=== PATIENT | male | born 1990 | race Caucasian/White ===

== ENCOUNTER → 2017-05-15 | Outpatient (CLI) | payer BC ==
--- NOTE | 2017-05-15 08:14 | US ---
EXAMINATION TYPE: US abdomen limited DATE OF EXAM: 05/15/2017 COMPARISON: NONE CLINICAL HISTORY: R10.30 LOWER ABD PAIN,N50.819 TESTICULAR PAIN. Patient stated has left inguinal and scrotal pain with upward motion of left leg and symptoms noted x 6 months; denies trauma Assess for hernia at location of: left groin Left inguinal hernia is not identified with and without Valsalva Maneuver. Real-time scanning was performed by the retail coordinator utilizing Valsalva and additional dynamic maneuve rs to assess for hernia. IMPRESSION: No focal sonographic abnormality within the left inguinal region or evidence of hernia w ith utilization of the Valsalva maneuver.
--- NOTE | 2017-05-15 08:16 | US ---
EXAMINATION TYPE: US scrotum with doppler. Grayscale and color Doppler Duplex imaging performed of cailin orellana scrotum. DATE OF EXAM: 05/15/2017 COMPARISON: NONE CLINICAL HISTORY: R10.30 LOWER ABD PAIN,N50.819 TESTICULAR PAIN. Patient stated has left inguinal and pelvic pain with upward motion of left leg with symptoms x 6 months; no trauma noted EXAM MEASUREMENTS: TESTICLES: Right Testicle: 4.6 x 2.1 x 3.4 cm Left Testicle: 4.2 x 2.0 x 2.8 cm EPIDIDYMIS HEAD: Right Epididymis: 0.8 x 0.7 x 0.9 cm Left Epididymis: 1.0 x 1.6 x 0.6 cm Doppler performed to assess for testicular vascularity; good bilateral color flow and waveforms are s een. There is no evidence of testicular torsion. Presence of hydroceles: small simple fluid collection is noted superior left scrotal sac = 1.9 x 1.4 x 0.3cm Presence of varicoceles: multiple tortuous veins are noted bilaterally at epididymal area with abnor mal dilatation noted left veins as size at >2.5mm on image #[id number] without Valsalva Maneuver. No inguinal hernia is noted left groin at area of concern. See abdomen limited study today for hernia assessment. IMPRESSION: 1. No evidence of testicular torsion on the current examination or intratesticular mass. No varicocel e is seen. 2. Trace right hydrocele seen at the superior aspect of the scrotal sac.
== END | disposition home or self-care (01) ==
LOC: RADUSWWP 06:50
PROVIDERS: ATTEND Family Medicine
DX: N50.819 Testicular pain, unspecified (principal); R10.30 Lower abdominal pain, unspecified
CPT/HCPCS: 76705; 76870; 93975

== ENCOUNTER 2017-06-11 23:25 | Emergency (ER) | payer BC ==
[2017-06-11 23:32] VITALS: BP 117/67; PULSE 83; RESP 18; TEMP 98.6
--- NOTE | 2017-06-12 00:27 | ED ---
Upper Extremity HPI - General Chief Complaint: Extremity Injury, Upper Stated Complaint: wrist pain Time Seen by Provider: 06/11/17 23:56 Source: patient, RN notes reviewed, old records reviewed Mode of arrival: ambulatory Limitations: no limitations - History of Present Illness Initial Comments: This patient is a 27 year old male with CC of left wrist pain and swelling for 2 days. It started while at work. He works in a factory with multiple repeatitive movements. He relates pain with flexion and extension of wrist. - Related Data Previous Rx's Medication Instructions Recorded Ibuprofen [Motrin] 600 mg PO Q8HR PRN #30 tab 06/12/17 Allergies Allergy/AdvReac Type Severity Reaction Status Date / Time codeine AdvReac Unknown Verified 06/11/17 23:32 Childhood Review of Systems ROS Statement: Those systems with pertinent positive or pertinent negative responses have been documented in the HPI. ROS Other: All systems not noted in ROS Statement are negative. Constitutional: Denies: fever, chills Eyes: Denies: eye pain ENT: Denies: ear pain Respiratory: Denies: cough Cardiovascular: Denies: chest pain Endocrine: Denies: fatigue Gastrointestinal: Denies: abdominal pain, nausea, vomiting Genitourinary: Denies: dysuria Musculoskeletal: Denies: back pain Skin: Denies: rash Neurological: Denies: headache, weakness Psychiatric: Denies: depression Hematological/Lymphatic: Denies: easy bleeding Past Medical History Past Medical History: No Reported History History of Any Multi-Drug Resistant Organisms: None Reported Past Surgical History: No Surgical Hx Reported Additional Past Surgical History / Comment(s): nose fx. Past Psychological History: No Psychological Hx Reported Smoking Status: Current every day smoker Past Alcohol Use History: Occasional Past Drug Use History: Marijuana General Exam Limitations: no limitations General appearance: alert, in no apparent distress Head exam: Present: atraumatic, normocephalic, normal inspection Eye exam: Present: normal appearance, PERRL, EOMI. Absent: scleral icterus, conjunctival injection, periorbital swelling ENT exam: Present: normal exam, mucous membranes moist Neck exam: Present: normal inspection. Absent: tenderness, meningismus, lymphadenopathy Respiratory exam: Present: normal lung sounds bilaterally. Absent: respiratory distress, wheezes, rales, rhonchi, stridor Cardiovascular Exam: Present: regular rate, normal rhythm, normal heart sounds. Absent: systolic murmur, diastolic murmur, rubs, gallop, clicks GI/Abdominal exam: Present: soft, normal bowel sounds. Absent: distended, tenderness, guarding, rebound, rigid Extremities exam: Present: normal inspection, full ROM, normal capillary refill , other (Swelling noted over left wrist, full ROM. No other symptoms. ). Absent : tenderness, pedal edema, joint swelling, calf tenderness Neurological exam: Present: alert, oriented X3, CN II-XII intact Psychiatric exam: Present: normal affect, normal mood Skin exam: Present: warm, dry, intact, normal color. Absent: rash Course Vital Signs 06/11/17 23:29 Temperature 98.6 F Pulse Rate 83 Respiratory 18 Rate Blood Pressure 117/67 O2 Sat by Pulse 98 Oximetry Medical Decision Making - Medical Decision Making 27 year old with left wrist pain and swelling after work. Works with repeatative movements, skin appears well. Patient has no excoriations. Patient Xray are normal. Discussed tendinitis. Discusssed LYNSEY wrap and antiinflammatory medication. Given note for work. - Radiology Data Radiology results: report reviewed Xray of left wrist and forearm are within normal limits. Disposition Clinical Impression: Tendinitis of left forearm Disposition: HOME SELF-CARE Condition: Good Instructions: Wrist Injury (ED), Swollen Joint (ED) Additional Instructions: Patient advised to follow-up with primary care provider. Return to the emergency department if any alarming signs or symptoms occur. Take antibiotic ointment her medicine over the compression wrap. Prescriptions: Ibuprofen [Motrin] 600 mg PO Q8HR PRN #30 tab PRN Reason: Pain Referrals: Bo Lucas III, MD [Primary Care Provider] - 1-2 days Jesse Odonnell MD [STAFF PHYSICIAN] - 1-2 days Time of Disposition: 01:01
--- NOTE | 2017-06-12 00:36 | XR ---
EXAMINATION TYPE: XR forearm LT DATE OF EXAM: 06/12/2017 COMPARISON: NONE HISTORY: Pain TECHNIQUE: 2 views FINDINGS: Radius and ulna appear intact. I see no fracture nor dislocation. Soft tissues appear bharat l. IMPRESSION: Negative left forearm exam
--- NOTE | 2017-06-12 00:37 | XR ---
EXAMINATION TYPE: XR wrist limited LT DATE OF EXAM: 06/12/2017 COMPARISON: NONE HISTORY: Pain TECHNIQUE: 2 views FINDINGS: I see no fracture nor dislocation. Joint spaces are normal. There are no pathologic calcifi cations. IMPRESSION: Negative left wrist exam.
--- NOTE | 2017-06-18 08:14 | CDI ---
Documentation Clarification OP Sri Jameson Please do addendum to ED report for missing type of splint. Thank you, Kiara Harris Product Safety Associate If you have any questions, please contact Pediatric Rn at [phone] [facility]
== END 2017-06-12 01:18 | disposition home or self-care (01) ==
LOC: EC 23:25
DX: M77.9 Enthesopathy, unspecified (principal); F17.200 Nicotine dependence, unspecified, uncomplicated; Z88.5 Allergy status to narcotic agent; X50.3XXA Overexertion from repetitive movements, initial encounter; Y92.63 Factory as the place of occurrence of the external cause; Y99.0 Civilian activity done for income or pay
CPT/HCPCS: 29125; 99284

== ENCOUNTER → 2020-06-12 | Outpatient (CLI) | payer BC | END | disposition home or self-care (01) | LOC: LABWHC1 17:04 | PROVIDERS: ATTEND Emergency Medicine | DX: Z20.822 Contact with and (suspected) exposure to COVID-19 (principal) | CPT/HCPCS: U0003; C9803 ==

== ENCOUNTER → 2022-08-27 | Day surgery (SDC) | payer BC ==
[~2022-08-27] MED LIST: LACTATED RINGERS 1,000 ML IV ONE; LACTATED RINGERS 1,000 ML IV SCH; LIDOCAINE 2% INJ 20 MG/ML (2 ML VIAL) ONE; PROPOFOL 10 MG/ML 20 ML VIAL IV ONE; fentaNYL (PF) 50 MCG/ML 2 ML AMP ONE
[2022-08-27 08:59] VITALS: TEMP 97.7
--- NOTE | 2022-08-27 09:38 | P.PCN ---
Date of Procedure: 08/27/22 Procedure(s) Performed: Brief history: Patient is a pleasant scheduled for an elective upper endoscopy as well as colonoscopy as a part of evaluation of long-standing history of GERD and intermittent rectal bleeding and chronic diarrhea for the last 1 year duration. He has bowel movements anywhere from one to 7 a day which are loose to watery in consistency with no blood or mucus in the stool. Procedure performed: Esophagogastroduodenoscopy with biopsy Colonoscopy with biopsy Preoperative diagnosis: GERD Rectal bleeding Chronic diarrhea of 1 year duration Anesthesia: MAC Procedure: After informed consent was obtained from the patient was brought into the endoscopy unit and IV sedation was administered by anesthesia under continuous monitoring. Initially upper endoscopy was done. The Olympus GF 160 video endoscope was inserted inserted into the mouth and esophagus intubated without any difficulty and was gradually advanced into the stomach and duodenum and carefully examined. The bulb and second part of the duodenum appeared normal biopsies were done from the duodenum to rule out celiac disease.. The scope was then withdrawn into the stomach adequately insufflated with air and upon careful examination the antrum had mild gastritis and biopsies were done from this area. Because of the body, cardia and fundus appeared normal. The scope was then withdrawn into the esophagus. small hiatal hernia noted. The GE junction was located at 40 cm to the incisors. It appeared reglinear erosions consistent with LA grade B reflux esophagitis.Rest of the esophagus appeared normal. Patient tolerated the procedure well. At this time the patient continued to remain sedation. Initial digital rectal examination was normal. Olympus CF 160 video colonoscope was then inserted into the rectum and gradually advanced to the cecum without any difficulty. Careful examination was performed as the scope was gradually being withdrawn. The prep was excellent. ileum was intubated and 20 cm visualized and appeared normal. The cecum, ascending colon, transverse colon, descending colon, sigmoid colon and rectum appeared normal. Random biopsies were done from ascending and descending colon to rule out microscopic/collagenous colitis. Retroflexion was performed in the rectum and no lesions were noted. Patient tolerated the procedure well. Impression: 1. Upper endoscopy revealed linear erosions esophagus consistent with LA grade B reflux esophagitis, small hiatal hernia and mild gastritis 2. Colonoscopy was within normal limits with no evidence of of colitis or colorectal neoplasia Recommendations: Findings of this examination were discussed with the patient as well as his family. He was advised to follow with the biopsy results. On. He will be seen in office in 2 weeks.
[2022-08-27 09:45] VITALS: RESP 16
[2022-08-27 10:02] VITALS: BP 128/81; PULSE 57
== END ==
LOC: ORWHC2ENDO 08:24
PROVIDERS: ATTEND Internal Medicine Gastroenterology
DX: K29.50 Unspecified chronic gastritis without bleeding (principal); K52.9 Noninfective gastroenteritis and colitis, unspecified; K44.9 Diaphragmatic hernia without obstruction or gangrene; K29.00 Acute gastritis without bleeding; F10.90 Alcohol use, unspecified, uncomplicated; Z79.899 Other long term (current) drug therapy
CPT/HCPCS: 88305; 45380; 43239; J3010; J2704; J2001